=== PATIENT | male | born 1990 | race Caucasian/White ===

== ENCOUNTER 2017-06-14 13:01 | Emergency (ER) | payer OTHER, BC ==
[~2017-06-14] VITALS: Ht 180.3 cm; Wt 71.2 kg
[2017-06-14 14:05] LABS: HEMATOCRIT 46.3 % (38.0-50.0); MCH 28.8 PG (29.0-34.0); MCHC 34.1 G/DL (30.0-36.0); MCV 84.5 FL (86-99); MEAN PLAT.VOLUME 10.2 uM^3 (9.0-12.4); PLATELET COUNT 185 K/uL (156-360); RBC DIS.WIDTH-CV 11.7 % (11.8-14.6); RBC DIS.WIDTH-SD 35.8 % (39-53); RED BLOOD COUNT 5.48 M/uL (4.00-5.50); WHITE BLOOD COUNT 7.2 K/uL (4.1-10.2)
[2017-06-14 14:11] LABS: INFLUENZA A VIRAL ANTIGEN NEGATIVE; INFLUENZA B VIRAL ANTIGEN NEGATIVE
[2017-06-14 14:18] LABS: CHLORIDE 103 mEq/L (99-109); POTASSIUM 3.8 mEq/L (3.7-5.4); SODIUM 137 mEq/L (136-147)
[2017-06-14 14:20] LABS: GLUCOSE 99 mg/dL (70-99)
[2017-06-14 14:22] LABS: ANION GAP 11 MEQ/L (2-14); TOTAL BILIRUBIN 1.1 mg/dL (0.0-1.0)
[2017-06-14 14:24] LABS: ALKALINE PHOSPHATASE 92 IU/L (3-129); GFR ESTIMATE (CALCULATED) > 59 mL/min/
[2017-06-14 14:25] LABS: UREA NITROGEN (BUN) 15 mg/dL (9-23)
[2017-06-14 16:49] VITALS: BP 127/70
== END 2017-06-14 16:50 | disposition home or self-care (01) ==
LOC: EME 13:01
PROVIDERS: Nurse Practitioner Family
DX: B34.9 Viral infection, unspecified (principal); E86.0 Dehydration; R11.2 Nausea with vomiting, unspecified; R50.9 Fever, unspecified; R55 Syncope and collapse
CPT/HCPCS: 80053; 85027; 87502; 99281; 99285; J7030